=== PATIENT | female | born 1950 | race Hispanic/Latino ===

== ENCOUNTER 2018-09-20 03:16 | Emergency (ER) | payer MEDICARE ==
[2018-09-20] MEDS ORDERED: PREDNISONE 20 MG TABLET ONE (03:50)
[2018-09-20 04:56] LABS: APPEARANCE,URINE Clear (CLEAR); BILIRUBIN,URINE Negative (NEGATIVE); COLOR,URINE Dark Yellow (YELLOW); GLUCOSE, URINE (UA) Negative (NEGATIVE); KETONES,URINE Trace mg/dL (NEGATIVE); LEUKOCYTE ESTERASE ,URINE Trace (NEGATIVE); NITRATE,URINE Negative (NEGATIVE); OCCULT BLOOD,URINE Negative (NEGATIVE); PROTEIN,URINE Negative (NEGATIVE)
[2018-09-20 05:13] LABS: BACTERIA,URINE Few /HPF (None Seen); MUCUS,URINE Few LPF (None Seen); RBC,URINE 0-1 /HPF (0-1)
== END 2018-09-20 06:18 | disposition home or self-care (01) ==
LOC: EDH 03:16
DX: M62.838 Other muscle spasm (principal); B02.9 Zoster without complications; M54.5 Low back pain; E11.9 Type 2 diabetes mellitus without complications; Z90.49 Acquired absence of other specified parts of digestive tract; Z72.0 Tobacco use
CPT/HCPCS: 72100; 81001

== ENCOUNTER 2018-10-14 20:49 | Emergency (ER) | payer MEDICARE ==
[2018-10-14] MEDS ORDERED: MORPHINE SULFATE 2 MG/ML 1ML SYG ONE (21:50)
[2018-10-14 21:53] LABS: EOSINOPHILS % (AUTO) 4.7 % (0.0-8.0); HEMATOCRIT 44.6 % (36-48); MEAN CORPUSCULAR HEMOGLOBIN 32.1 pg (27.0-33.0); MEAN CORPUSCULAR HGB CONC 34.4 g/dL (32.0-36.0); MEAN CORPUSCULAR VOLUME 93.5 fL (79-99); MONOCYTES % (AUTO) 9.2 % (3.0-13.0); NEUTROPHILS % (AUTO) 57.1 % (40.0-77.0); NUCLEATED RED BLOOD CELLS 0.1 % (0.0-0.19); PLATELET COUNT (AUTO) 215 K/uL (130-400); RED BLOOD CELL COUNT(AUTO) 4.77 MIL/uL (4.00-5.50); RED CELL DISTRIBUTION WIDTH 14.5 % (11.0-15.5); WHITE BLOOD COUNT (AUTO) 8.7 K/uL (4.8-10.8)
[2018-10-14 22:02] LABS: POTASSIUM 3.6 mmol/L (3.5-5.1)
[2018-10-14 22:13] LABS: ALBUMIN 3.3 g/dL (3.5-5.0); BILIRUBIN,TOTAL 0.4 mg/dL (0.2-1.0)
[2018-10-14 22:21] LABS: APPEARANCE,URINE SL CLOUDY (CLEAR); BILIRUBIN,URINE MODERATE (NEGATIVE); GLUCOSE, URINE (UA) NEGATIVE (NEGATIVE); KETONES,URINE 5 mg/dL (NEGATIVE); LEUKOCYTE ESTERASE ,URINE NEGATIVE (NEGATIVE); NITRATE,URINE NEGATIVE (NEGATIVE); OCCULT BLOOD,URINE NEGATIVE (NEGATIVE); PH,URINE 5.5 (5.0-8.0); PROTEIN,URINE 30 mg/dL (NEGATIVE)
[2018-10-14 22:25] LABS: COLOR,URINE DARK YELLOW (YELLOW)
[2018-10-14 22:31] LABS: BACTERIA,URINE Rare /HPF (None Seen); RBC,URINE 0-1 /HPF (0-1); SQUAMOUS EPITHELIAL CELL,UR 0-2 /HPF (0-2); WBC,URINE 0-1 /HPF (0-1)
== END 2018-10-14 23:44 | disposition home or self-care (01) ==
LOC: EDH 20:49
DX: B02.29 Other postherpetic nervous system involvement (principal); R10.12 Left upper quadrant pain; R10.32 Left lower quadrant pain; E11.9 Type 2 diabetes mellitus without complications; Z72.0 Tobacco use
CPT/HCPCS: 36415; 74176; 80053; 81001; 83690; 85025; 96374

== ENCOUNTER 2019-02-10 09:39 | Emergency (ER) | payer MEDICARE | END 2019-02-10 11:28 | disposition home or self-care (01) | LOC: EDH 09:39 | DX: G89.18 Other acute postprocedural pain (principal); H57.12 Ocular pain, left eye; E11.9 Type 2 diabetes mellitus without complications; Z98.890 Other specified postprocedural states ==

== ENCOUNTER 2025-02-08 18:30 | Emergency (ER) | payer OTHER, MEDICARE ==
[~2025-02-08] VITALS: Ht 152.4 cm; Wt 113.4 kg
[~2025-02-08 18:30] MED LIST: AMOX1TAB15 PO; ASPI-1443 PO; ATOR10 PO; FURO40TA7 PO; METH4TAB3 PO; METO-408 PO; OMEP10CA5 PO
[2025-02-08 19:09] VITALS: TEMP 98.4
[2025-02-08 19:25] LABS: APPEARANCE,URINE CLEAR (CLEAR); GLUCOSE, URINE (UA) NEGATIVE (NEGATIVE); LEUKOCYTE ESTERASE ,URINE 250 Leu/uL (NEGATIVE); NITRATE,URINE NEGATIVE (NEGATIVE); OCCULT BLOOD,URINE NEGATIVE (NEGATIVE)
--- NOTE | 2025-02-08 19:28 | ERN ---
ED Note History of Present Illness Stated Complaint: SOB Chief Complaint: Shortness of Breath Time Seen by MD: 19:10 Dictation: Patient is a 74-year-old female with past medical history of COPD, heart failure, morbid obesity who presents to the ER complaining of shortness breath, fluid overload on her abdomen. Patient stated that today she was doing her daily jobs in her house when suddenly she felt shortness breath, she measured her O2 saturation was 88%. Initial vital signs here in the ER saturation was 97% on room air. Allergies: Coded Allergies: No Known Drug Allergies (Unverified Allergy, Unknown, 09/20/18) Home Meds Active Scripts Amoxicillin/Potassium Clav (Amox Tr-K Clv 875-125 mg Tab) 875 Mg-125 Mg Tablet, 1 TAB PO BID for 7 Days, #14 TAB 0 Refills Prov:NNEKA GTZ MD 02/08/25 Albuterol Sulfate (Ventolin Hfa/Proventil Hfa/Proair Hfa) 90 Mcg Puff, 2 PUFF IH Q4HPRN PRN for wheezing for 30 Days, #18 GM 0 Refills Prov:NNEKA GTZ MD 02/08/25 Methylprednisolone (Medrol) 4 Mg Tab.ds.pk, 1 TAB PO AD for 6 Days, #21 TAB 0 Refills 6 on day 1 then reduce by one tablet daily until gone Prov:BLAIR JOHNSTONP 04/03/24 Amoxicillin/Potassium Clav (Amox Tr-K Clv 500-125 mg Tab) 500 Mg-125 Mg Tablet, 1 TAB PO BID for 7 Days, #14 TAB 0 Refills Prov:BLAIR JOHNSTONP 04/03/24 Atorvastatin Calcium (LIPITOR) 10 Mg Tab, 10 MG PO HS, #30 TAB Prov:BLAIR JOHNSTON AGAP 04/03/24 Reported Medications Omeprazole (Omeprazole) 10 Mg Capsule.dr, 1 CAP PO DAILY for 30 Days, #30 CAP 0 Refills 03/31/24 Metoprolol Succinate (Metoprolol Succinate) 25 Mg Tab.er.24h, 1 TAB PO DAILY for 30 Days, #30 TAB 0 Refills 03/31/24 Furosemide (Lasix 40Mg Tab) 40 Mg Tablet, 40 MG PO BID, TAB 03/31/24 Aspirin (Aspirin EC) 81 Mg Tablet.dr, 1 TAB PO DAILY for 30 Days, #30 TAB 0 Refills 03/31/24 Past Medical History Past Medical History: COPD, Other Additional Past Medical Hx: EMPHESEMA, UNKNOWN CARDIAC, POOR HISTORIAN Surgical History: Unknown Surgical History Other: POOR HISTORIAN History: Not Applicable Review of System Dictation NEGATIVE EXCEPT PER HPI Constitutional: Negative for fever,chills, and weight loss Eyes: Negative for injury, pain,redness, and discharge ENT: Negative for injury,pain or swelling Cardiovascular: denies chest pain, palpitations, and edema Respiratory: Shortness breath Abdomen/GI: Negative for abdominal pain, nausea, vomiting, diarrhea, and constipation Back: Negative for injury and pain : Negative for injury, bleeding and discharge MS/Extremity: Negative for injury and deformity Skin: Negative for rash, and discoloration Neuro: Negative for headache, weakness, numbness, tingling, and seizure Psych: Negative for suicide ideation, homicidal ideation, and hallucinations Initial Vital Sign VS Vital Signs Date Time Temp Pulse Resp B/P (MAP) Pulse Ox O2 Delivery O2 Flow Rate FiO2 02/08/25 19:09 98.4 79 18 153/90 97 Room Air 02/08/25 19:32 0 21 Physical Exam Dictation General: awake, alert, NAD Head/Face: Normocephalic, atraumatic Eyes: PERRL, EOMI, vision at baseline ENT: oral cavity clear, TMs clear, no signs of infection Neck: Trachea midline, supple, no nuchal rigidity Cardiovascular: RRR, normal S1/S2, No MRGs, no JVD Respiratory: CTAB, no respiratory distress, No rales or wheezes Abdomen: Soft , no tender Skin: Warm, dry, normal turgor, no rash MS/Extremity: Pulses equal, no cyanosis, neurovascular intact, FROM Neuro: COAx4, GCS 15, strength 5/5, CN 2-12 intact, normal cerebellar exam, normal gait, Psych: Normal behavior, mood, and affect normal Results (Laboratory/Radiology) Laboratory/Radiology Laboratory Tests Test 02/08/25 19:13 02/08/25 19:32 02/08/25 19:39 Urine Color YELLOW (YELLOW) Urine Appearance CLEAR (CLEAR) Urine pH 5.5 (5.0-8.0) Urine Specific [place] 1.025 (1.001-1.031) Urine Protein NEGATIVE mg/dL (NEGATIVE) Urine Glucose (UA) NEGATIVE mg/dL (NEGATIVE) Urine Ketones NEGATIVE mg/dL (NEGATIVE) Urine Occult Blood NEGATIVE (NEGATIVE) Urine Nitrate NEGATIVE (NEGATIVE) Urine Bilirubin NEGATIVE mg/dL (NEGATIVE) Urine Urobilinogen 0.2 mg/dL (0.2-1.0) Urine Leukocyte Esterase 250 [place]/uL (NEGATIVE) H Urine RBC 2-5 /HPF (0-1) H Urine WBC 11-25 /HPF (0-1) H Urine Squamous Epithelial Cells MOD /HPF (0-2) Urine Bacteria RARE /HPF (None Seen) White Blood Count 10.3 K/uL (4.8-10.8) Red Blood Count 4.88 MIL/uL (4.00-5.50) Hemoglobin 15.2 g/dL (12.0-16.0) Hematocrit 46.6 % (36-48) Mean Corpuscular Volume 95.5 fL (79-99) Mean Corpuscular Hemoglobin 31.1 pg (27.0-33.0) Mean Corpuscular Hemoglobin Concent 32.6 g/dL (32.0-36.0) Red Cell Distribution Width 14.4 % (11.0-15.5) Platelet Count 199 K/uL (130-400) Mean Platelet Volume 11.2 fL (7.5-10.5) H Immature Granulocyte % (Auto) 0.4 % (0-1) Neutrophils (%) (Auto) 60.7 % (40.0-77.0) Lymphocytes (%) (Auto) 26.2 % (21.0-51.0) Monocytes (%) (Auto) 9.4 % (3.0-13.0) Eosinophils (%) (Auto) 2.9 % (0.0-8.0) Basophils (%) (Auto) 0.4 % (0.0-5.0) Neutrophils # (Auto) 6.2 K/uL (1.8-7.7) Lymphocytes # (Auto) 2.7 K/uL (1.0-4.8) Monocytes # (Auto) 1.0 K/uL (0.1-1.0) Eosinophils # (Auto) 0.30 K/uL (0.00-0.70) Basophils # (Auto) 0.04 K/uL (0.00-0.20) Absolute Immature Granulocyte (auto 0.04 K/uL (0-1) Nucleated Red Blood Cells 0.0 % (0.0-0.19) Sodium Level 141 mmol/L (136-145) Potassium Level 5.2 mmol/L (3.5-5.1) H Chloride Level 103 mmol/L (101-111) Carbon Dioxide Level 31 mmol/L (21-32) Blood Urea Nitrogen 25 mg/dL (7-18) H Creatinine 1.0 mg/dL (0.5-1.0) Glomerular Filtration Rate Calc 59 mL/min (>90) Random Glucose 104 mg/dL (70-105) Total Calcium 9.0 mg/dL (8.5-10.1) B-Type Natriuretic Peptide 62 pg/mL (0-100) Influenza Type A Antigen Negative For Type A Influenza Type B Antigen Negative For Type B SARS-CoV-2 Antigen (Rapid) PRESUMPTIVE NEGATIVE EKG Comment: Sinus rhythm rate 69, CO 133, QT 404 ED Course ED Course Orders Procedure Category Date Status Time Cbc With Differential LAB 02/08/25 Complete 19:11 Basic Metabolic Panel LAB 02/08/25 Complete 19:11 B-Type Natriuretic LAB 02/08/25 Complete Peptide 19:11 Chest 1vw RAD 02/08/25 Taken 19:11 Urinalysis Profile LAB 02/08/25 Complete 19:15 Culture Urine ROCHELLE 02/08/25 In Process 19:29 Influenza Type A & B, LAB 02/08/25 Complete Rapid 19:35 Ceftriaxone 1g Vial PHA 02/08/25 Complete (Rocephine 1g Inj) 20:00 Furosemide 40mg Vial PHA 02/08/25 Complete (Lasix 40mg Vial) 20:30 Covid19 (Sars Antigen LAB 02/08/25 Complete Rapid) 19:39 Ipratropium/Albuterol PHA 02/08/25 Complete Neb (Duoneb) 20:30 Current Medications Medications (Trade) Dose Ordered Sig/[place]omi Route PRN Reason Start Time Stop Time Status Last Admin Dose Admin Albuterol (DUOneb) 3 udvial ONCE ONCE IH 02/08/25 20:30 02/08/25 20:31 DC 02/08/25 21:12 Ceftriaxone Sodium (ROCEphine 1G INJ) 1 gm ONCE ONCE IVPB 02/08/25 20:00 02/08/25 20:01 DC 02/08/25 20:18 Furosemide (LASix 40MG VIAL) 40 mg ONCE ONCE IV 02/08/25 20:30 02/08/25 20:31 DC 02/08/25 20:18 Vital Signs Date Time Temp Pulse Resp B/P (MAP) Pulse Ox O2 Delivery O2 Flow Rate FiO2 02/08/25 20:45 64 20 02/08/25 19:32 78 19 145/61 95 Room Air* 0 21 02/08/25 19:09 98.4 79 18 153/90 97 Room Air Medical Decision Making MDM Patient is a 74-year-old female with past medical history of COPD, heart failure, morbid obesity who presents to the ER complaining of shortness breath, fluid overload on her abdomen. Patient stated that today she was doing her daily jobs in her house when suddenly she felt shortness breath, she measured her O2 saturation was 88%. Initial vital signs here in the ER saturation was 97% on room air. 1. Urinary tract infection 2. COPD exacerbation 3. Coronary edema 4. Heart failure/cardiomegaly Ordered laboratory workup, chest x-ray. UA positive for UTI -ceftriaxone 1 gr ordered -DuoNeb x1 -furosemide 40 mg IV x 1 Patient must follow up with PCP in next 24 hours. Must continue furosemide 40 mg b.i.d.. DX & DISP Disposition: Discharge Departure Impression: Primary Impression: Acute exacerbation of chronic obstructive airways disease Additional Impressions: UTI (urinary tract infection), Pulmonary edema, Heart failure Condition: Stable Scripts Amoxicillin/Potassium Clav (Amox Tr-K Clv 875-125 mg Tab) 875 Mg-125 Mg Tablet 1 TAB PO BID for 7 Days, #14 TAB 0 Refills Prov: NNEKA GTZ MD 02/08/25 Albuterol Sulfate (Ventolin Hfa/Proventil Hfa/Proair Hfa) 90 Mcg Puff 2 PUFF IH Q4HPRN PRN for wheezing for 30 Days, #18 GM 0 Refills Prov: NNEKA GTZ MD 02/08/25 Additional Instructions: RETURN TO ER FOR ANY ACUTE OR WORSENING SYMPTOMS. FOLLOW-UP IN 1-2 DAYS WITH PRIMARY PROVIDER FOR RECHECK OF TODAY'S SYMPTOMS. Referrals: ALEXANDER MAGALLANES (PCP) NNEKA GTZ MD Feb 08, 2025 19:28
[2025-02-08 19:29] LABS: ADD UA MICROSCOPIC YES
[2025-02-08 19:32] VITALS: BP 145/61; O2SAT 95
[2025-02-08 19:33] LABS: SQUAMOUS EPITHELIAL CELL,UR MOD /HPF (0-2)
[2025-02-08 19:40] LABS: IMMATURE GRANULOCYTE ABSOLUTE 0.04 K/uL (0-1); NUCLEATED RED BLOOD CELLS 0.0 % (0.0-0.19); PLATELET COUNT (AUTO) 199 K/uL (130-400); RED BLOOD CELL COUNT(AUTO) 4.88 MIL/uL (4.00-5.50); RED CELL DISTRIBUTION WIDTH 14.4 % (11.0-15.5); WHITE BLOOD COUNT (AUTO) 10.3 K/uL (4.8-10.8)
[2025-02-08 19:52] LABS: CREATININE 1.0 mg/dL (0.5-1.0); GLOMERULAR FILTR. RATE CALC 59.0 mL/min (>90); GLUCOSE,RANDOM 104.0 mg/dL (70-105); SODIUM SERUM 141.0 mmol/L (136-145); UREA NITROGEN, BLOOD 25.0 mg/dL (7-18)
[2025-02-08 20:02] LABS: INFLUENZA TYPE A Negative For Type A (NEGATIVE); INFLUENZA TYPE B Negative For Type B (NEGATIVE)
[2025-02-08 20:16] LABS: COVID19 (SARS ANTIGEN RAPID) PRESUMPTIVE NEGATIVE (NEGATIVE)
[2025-02-08 20:45] VITALS: PULSE 64; RESP 20
[2025-02-08] MEDS ORDERED: AMOX1TAB16 PO (21:50)
[2025-02-08] MEDS ORDERED: ALBUHFA IH (21:50)
--- NOTE | 2025-02-08 23:26 | HMCIMG ---
EXAM: CR Chest, 1 View. CLINICAL HISTORY: SOB. COMPARISON: None provided. FINDINGS: LUNGS: There is no mass, infiltrate, or acute pulmonary abnormality. PLEURAL SPACES: No pleural effusion or pneumothorax. MEDIASTINUM: Heart size cannot be commented on due to significant rotation. BONES: No aggressive appearing osseous lesion. IMPRESSION: No acute cardiopulmonary pathology is evident. /[place]
== END 2025-02-08 22:15 | disposition home or self-care (01) ==
LOC: EDH 18:30
DX: J44.1 Chronic obstructive pulmonary disease with (acute) exacerbation (principal); N39.0 Urinary tract infection, site not specified; I50.9 Heart failure, unspecified; J81.1 Chronic pulmonary edema; E66.01 Morbid (severe) obesity due to excess calories; Z20.822 Contact with and (suspected) exposure to COVID-19; Z79.82 Long term (current) use of aspirin; Z79.899 Other long term (current) drug therapy; Z68.30 Body mass index [BMI] 30.0-30.9, adult
CPT/HCPCS: 99284; 96374; 71045; 96375; 87426; 80048; 83880; 85025; 87086; 87804 ×2; 81001; 36415; 94640; J0696; J1938